=== PATIENT | female | born 1990 | race Caucasian/White ===

== ENCOUNTER 2019-09-13 08:27 | Emergency (ER) | payer OTHER, SELFPAY ==
[2019-09-13 08:36] VITALS: BP 114/68; PULSE 80; RESP 13; TEMP 35.7; O2SAT 98
--- NOTE | 2019-09-13 08:50 | ED_ITS ---
HPI - Abdominal Pain General Chief Complaint: Abdominal Pain Stated Complaint: lower abdominal cramping Time Seen by Provider: 09/13/19 08:27 Source: patient Mode of arrival: Ambulatory Limitations: no limitations History of Present Illness HPI narrative: 29-year-old female with a history of PCOS here for evaluation of left lower quadrant abdominal pain. Patient states that her symptoms started yesterday morning. They progressively worsened throughout yesterday evening however she states that they were ?bearable ?she woke up at approximately 0300 hours in the morning with worsening pain in left lower quadrant. She did take an ibuprofen which seemed to help her symptoms somewhat and she was able to go back to bed however the pain then was again worse this morning. Some nausea however was not bad enough that she had to take the nausea medicine that she has at home. No vomiting. No change in bowel habits. She did take an [id number] AZO yesterday. She states that her to left lower quadrant ab dominal pain is somewhat like her prior history of PCOS however not exactly. She thought that she potentially had a urinary tract infection. She is visiting the local area for. She is from [place]. States that prior to coming to the area she was seen for left lower quadrant pain which was diagnosed as her PCOS. She was also told that she had a yeast infection. She completed a course of medicat ions for this. She was told that she did not have a urinary tract infection at that time. She does have a history of breast cancer. Has had a double mastectomy. She has also had her bilateral fallopian tubes removed. She does have both of her ovaries. She is not on control because they history of breast cancer. She is not currently undergoing any treatment for the breast cancer. Related Data Previous Rx's Medication Instructions Recorded cephalexin [Keflex] 500 mg PO BID 5 Days #10 cap 09/13/19 Allergies Allergy/AdvReac Type Severity Reaction Status Date / Time amoxicillin AdvReac Verified 09/13/19 08:52 buspirone [From BuSpar] AdvReac Verified 09/13/19 08:52 ketorolac [From Toradol] AdvReac Verified 09/13/19 08:52 morphine AdvReac Verified 09/13/19 08:52 Review of Systems Constitutional Constitutional: Denies fever(s) Cardiovascular Cardiovascular: Denies chest pain and Denies dyspnea Respiratory Respiratory: Denies dyspnea Gastrointestinal Gastrointestinal: Reports abdominal pain, Denies change in bowel habits, Reports nausea and Denies vomiting Genitourinary Genitourinary: Denies urinary frequency, Reports dysuria and Denies vaginal discharge Musculoskeletal Musculoskeletal: Denies myalgias and Denies arthralgias Integumentary/Breasts Skin/Breast: Denies lesions and Denies rash Neurologic Neurologic: Denies behavioral changes Psychiatric Psychiatric: Denies behavioral changes Hematologic/Lymphatic Hematologic/Lymphatic: Denies easy bleeding and Denies easy bruising Patient History Medical History Breast cancer (Acute) Surgical History H/O mastectomy (Acute) Social History Smoking Status: Never smoker Social History (Updated 09/13/19 @ 09:03 by aPncho Taylor DO) marital status: Smoking Status: Never smoker Exam Initial Vital Signs Initial Vital Signs: Vital Signs Temperature 96.2 F L 09/13/19 08:36 Pulse Rate 80 09/13/19 08:36 Respiratory Rate 13 09/13/19 08:36 Blood Pressure 114/68 09/13/19 08:36 Pulse Oximetry 98 09/13/19 08:36 Const General: cooperative, well developed and well groomed Orientation: alert, awake and oriented x3 Resp Effort & Inspection: normal respiratory effort Cardio Rate: regular rate GI Inspection: non-distended Palpation: soft, No firm and tender (LLQ left adnexa tenderness) Back/Spine/Pelvis Back: No CVA tenderness Skin Lesions: no lesions Rashes: no rashes Neuro General: alert and awake Cognition: normal cognition Speech: speech normal Gait: normal gait Extrem General: normal to inspection and capillary refill normal Psych Appearance: grossly normal and well kempt Course Orders Ordered: ED Orders 09/13/19 08:45 Urine Microscopic Stat 09/13/19 08:51 US pelvic complete Stat Discontinued Medications Ondansetron HCl (Zofran Odt) 4 mg PO NOW ONE Stop: 09/13/19 09:48 Oxycodone/Acetaminophen (Percocet 5/325) 1 tab PO NOW ONE Stop: 09/13/19 08:52 Last Admin: 09/13/19 08:58 Dose: 1 tab Documented by: VITOR Vital Signs Vital signs: Vital Signs - 8 hr 09/13/19 08:36 09/13/19 09:46 Temperature 96.2 F L Pulse Rate 80 80 Respiratory Rate 13 18 Blood Pressure 114/68 Blood Pressure [Left Arm] 114/79 Pulse Oximetry 98 98 MDM - Abdominal Pain Lab Data Attestation: I reviewed the patient's lab results. Labs: Lab Results 09/13/19 Range/Units 08:45 Urine RBC 10-30/hpf H (0-5/HPF) Urine WBC 10-30/hpf H (0-5/HPF) Ur Squamous Epith Cells 10-30 /hpf H (0-5/HPF) Urine Bacteria None seen (None) Urine Mucus 3+ H (Negative) Ur Culture Indicated? Cult not indicated Point of care testing: Point of Care Testing Test Results Negative Urine Dip Bedside Urine Glucose Negative Bedside Urine Bilirubin + 1 Urine Specific Harris 1.025 Bedside Urine Occult Blood ++ Bedside Urine pH 6.0 Bedside Urine Protein +/- 15 Bedside Urine Urobilinogen 1+ 2mg Bedside Urine Nitrite + Positive Bedside Urine Leukocytes ++ 125 Esterase Imaging Data US - abdomen: Radiologist's impression: [place] [address] Ultrasound Report Signed Patient: Tiffany Weston VMR#: [id number] : 1990Acct:[id number] Age/Sex: te of Service: 09/13/19 Loc: ED Accession Number: [id number] Procedure: US pelvic complete Ordering Provider: Pancho Taylor D.O. PROCEDURE: US PELVIC COMPLETE INDICATIONS: HISTORY OF PCOS WITH LEFT SIDED PAIN TECHNIQUE: Real-time scanning was performed of the pelvic organs, with image documentation. Additional endovaginal scanning was necessary due to incomplete visualization of the adnexal and endometrial structures by transabdominal scanning. COMPARISON: None. FINDINGS: Transabdominal scanning: Limited scanning through the kidneys shows no hydronephrosis. No pathologic free abdominal or pelvic fluid. Endovaginal scanning: Uterus: Uterus is normal in size at 8.7 x 4.2 x 5.6 cm. The endometrium measures 8 mm in combined thickness. Foci of heteroechogenicity are noted at the level of cervix possibly related to complex nabothian cysts. Ovaries: Right ovary measures 36 x 19 x 20 mm. Left ovary measures 40 x 22 x 25 mm. IMPRESSION: 1. Foci of heteroechogenicity at the level of the cervix as above. These likely represent complex nabothian cysts. Dictated by: Gita Vasquez M.D. on 09/13/2019 at 9:32 Approved by: Gita Vasquez M.D. on 09/13/2019 at 9:39 MDM Narrative Medical decision making narrative: Nontoxic appearing. Urinalysis is nitrite positive. She also has symptoms which she thinks is urinary tract infection. She has no indication for pyelonephritis. Is tolerating oral intake. Has nausea medication at home. Is afebrile. Has a benign abdominal exam. Ultrasound negative for acute pathology. Will hold on further workup for now. Patient was given return precautions and follow-up instructions. She expressed understanding and agreement with plan. Discharge Plan Departure Patient Disposition: Home Clinical Impression: Urinary tract infection Qualifiers: Urinary tract infection type: acute cystitis Hematuria presence: without hematuria Qualified Code(s): N30.00 - Acute cystitis without hematuria Abdominal pain Qualifiers: Abdominal location: left lower quadrant Qualified Code(s): R10.32 - Left lower quadrant pain Instructions: DI for Urinary Tract Infection (UTI), DI for Abdominal Pain-Adult Activity Restrictions/Additional Instructions: Take all of the antibiotics as directed. Use your nausea medication as needed. Return to the emergency department for any new or worsening symptoms Prescriptions: New cephalexin [Keflex] 500 mg capsule 500 mg PO BID 5 Days Qty: 10 RF: 0
[2019-09-13 08:58] LABS: Bacteria Urine None Seen
[2019-09-13] MEDS: OXYCODONE/ACETAMINOPHEN 5/325 TABLET 1 TAB PO (08:58)
[2019-09-13 09:08] LABS: RBC Urine 10-30/HPF (0-5/HPF); Squamous Epithelial Cell Urine 10-30 /HPF (0-5/HPF); WBC Urine 10-30/HPF (0-5/HPF)
[2019-09-13 09:09] LABS: Culture Indicated Urine Cult Not Indicated; Mucus Urine 3+ (Negative)
[2019-09-13 09:46] VITALS: BP 114/79; PULSE 80; RESP 18; O2SAT 98
[2019-09-13] MEDS: ONDANSETRON 4 MG ODT PO (09:49)
== END 2019-09-13 10:00 | disposition home or self-care (01) ==
PROVIDERS: Emergency Provider Emergency Medicine
DX: N30.00 Acute cystitis without hematuria (principal); R10.32 Left lower quadrant pain
CPT/HCPCS: 76830; 76856; 81003; 81015; 81025; 99283